=== PATIENT | female | born 1970 | race African-American/Black ===

== ENCOUNTER 2023-01-14 22:59 | Emergency (ER) | payer SELFPAY ==
[~2023-01-14] VITALS: Ht 165.1 cm; Wt 84.8 kg
--- NOTE | 2023-01-14 23:19 | NUR ---
Dr Gamble at bedside MSE in progress
[2023-01-14] MEDS ORDERED: HYDR12.55 PO (23:38)
[2023-01-14] MEDS ORDERED: IBUPROFEN 600 MG TABLET PO ONE (23:45)
[2023-01-14] MEDS ORDERED: IBUP-1955 PO (23:57)
[2023-01-15] MEDS ORDERED: IBUPROFEN 600 MG TABLET ONE
--- NOTE | 2023-01-15 00:06 | NUR ---
Patient discharged to home in stable condition. Written and verbal after care instructions given. Patient verbalizes understanding of instructions. Stressed follow up or return to ER for worsening s/s. Patient is a/ox4, NAD noted, patient is accompanied by her son
[2023-01-15 00:17] VITALS: BP 128/78
== END 2023-01-15 00:18 | disposition home or self-care (01) ==
LOC: ER 23:02
DX: S40.011A Contusion of right shoulder, initial encounter (principal); Z79.1 Long term (current) use of non-steroidal anti-inflammatories (NSAID); Z79.899 Other long term (current) drug therapy; V49.9XXA Car occupant (driver) (passenger) injured in unspecified traffic accident, initial encounter; Y93.89 Activity, other specified; Y92.89 Other specified places as the place of occurrence of the external cause; Y99.8 Other external cause status
CPT/HCPCS: 73030; A4663